=== PATIENT | female | born 2005 | race African-American/Black ===

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

== ENCOUNTER 2023-10-28 11:06 | Emergency (ER) | payer SELFPAY ==
[2023-10-28 11:12] VITALS: BP 131/66; PULSE 68; RESP 20; TEMP 36.1; O2SAT 100
--- NOTE | 2023-10-28 11:17 | ED.BACK ---
HPI - Back Pain/Injury General Chief Complaint: Back Pain/Injury Stated Complaint: Lower back pain Time Seen by Provider: 10/28/23 11:17 Source: patient Mode of arrival: ambulatory Limitations: no limitations History of Present Illness HPI Narrative: 18-year-old female presents complaint of pain to mid and low back since yesterday. Patient states she did front flip off a diving board yesterday and did not complete flip causing her to land on her back. Did not have any back pain immediately following injury. States later that evening back began to ache. Taking ibuprofen with some relief. Was not able to go to work today due to back pain. Ambulatory with steady gait. No radiation to lower extremities. Denies numbness, tingling, weakness or x-rays. No loss of bowel or bladder. All systems reviewed and negative except as noted above. Related Data Allergies Allergy/AdvReac Type Severity Reaction Status Date / Time No Known Allergies Allergy Verified 10/28/23 11:28 Review of Systems Review of Systems: CONSTITUTIONAL: Denies fever, chills, or sweats. EYES: Denies visual changes, redness, or discharge. ENT: Denies rhinorrhea, congestion, sore throat, or otalgia. CARDIOVASCULAR: Denies chest pain, palpitations, or edema. RESPIRATORY: Denies cough or dyspnea. GASTROINTESTINAL: Denies abdominal pain, nausea, vomiting, or diarrhea. GENITOURINARY: Denies dysuria or hematuria. SKIN: Denies rash or itching. MUSCULOSKELETAL:Reports mid and low back pain. Denies joint pain, or myalgia. NEUROLOGIC: Denies headache, numbness, or weakness. PSYCHIATRIC: Denies anxiety or depression. All other systems reviewed are negative, except as documented in HPI. PMFSH Comments At time of signature, agree with nursing past medical, surgical, social and family history. There is no relevant family history pertinent to the presenting complaint. Exam Narrative: GENERAL: This is a well-nourished, well-developed patient, in no apparent distress. HEAD: normocephalic, atraumatic. EYES: PERRL. Sclera clear/white. Vision is grossly intact. EARS: External ears normal NOSE: External nose normal NECK: Neck supple, non-tender without lymphadenopathy, masses or thyromegaly. CARDIOVASCULAR: Regular rate and rhythm without murmurs, gallops, or rubs. RESPIRATORY: Clear to auscultation. Breath sounds equal bilaterally. No wheezes, rales, or rhonchi. \ SKIN: warm, Dry, intact with no suspicious lesions or rash, good texture and turgor. NEURO: awake, alert, and oriented to person, place and time. There were no obvious focal neurologic abnormalities. EXTREMITIES: No joint tenderness, effusion, or edema noted. BACK: No midline tenderness. No deformity. Generalized muscular tenderness to mid and low back. Range of motion normal. Course Course Level of Care: Express Care Visit Vital Signs Vital signs: Vital Signs Temperature 36.1 C L 10/28/23 11:12 Pulse Rate 68 10/28/23 11:12 Respiratory Rate 20 10/28/23 11:12 Blood Pressure 131/66 10/28/23 11:12 Pulse Oximetry 100 10/28/23 11:12 Oxygen Delivery Room Air 10/28/23 11:12 Temperature 36.1 C L 10/28/23 11:12 Pulse Rate 68 10/28/23 11:12 Respiratory Rate 20 10/28/23 11:12 Blood Pressure 131/66 10/28/23 11:12 Pulse Oximetry 100 10/28/23 11:12 Oxygen Delivery Room Air 10/28/23 11:12 Reviewed MDM - Back Pain/Injury MDM Narrative Medical decision making narrative: Patient is aware of diagnosis, understands and agrees to treatment plan. Anticipatory guidance given. Patient agrees to follow-up as directed and is aware of reasons to seek care at the emergency department. Portions of this record may have been created with voice recognition software Recommend rest, ice, heat, stretching. Recommend follow-up with primary care physician if pain not improving. Imaging not indicated due to no midline tenderness. No neuro deficits the time of discharge. D
== END 2023-10-28 11:30 | disposition home or self-care (01) ==
PROVIDERS: Emergency Provider Nurse Practitioner Family
DX: S29.012A Strain of muscle and tendon of back wall of thorax, initial encounter (principal); S21.209A Unspecified open wound of unspecified back wall of thorax without penetration into thoracic cavity, initial encounter; W16.012A Fall into swimming pool striking water surface causing other injury, initial encounter
CPT/HCPCS: 99213; G0463